=== PATIENT | male | born 1960 | race Caucasian/White ===

== ENCOUNTER 2023-03-23 19:32 | Emergency (ER) | payer OTHER, SELFPAY ==
--- NOTE | 2023-03-23 19:39 | ED_ITS ---
HPI - General Adult General Chief complaint: General Medical Stated complaint: heavy nose bleeding for 45 minutes Time Seen by Provider: 03/23/23 21:36 Source: patient Mode of arrival: ambulatory Limitations: no limitations History of Present Illness HPI narrative: Patient comes in the emergency room complaining of a nosebleed that lasted 45 minutes. Patient states that he had this happen before when his blood pressure was high. At this time, patient states that he feels that the nosebleed is slowing down. Patient denies headache. Approximately 4 hours ago, patient took his losartan. Related Data Previous Rx's Medication Instructions Recorded amlodipine 10 mg tablet 10 mg PO DAILY #30 tabs 03/23/23 Allergies Allergy/AdvReac Type Severity Reaction Status Date / Time No Known Allergies Allergy Verified 03/23/23 19:48 Review of Systems Review of Systems: Constitutional : No Weight loss, No Fever, No Chills, No Night Sweats, No Fatigue, No Malaise ENT/Mouth : Complaining of epistaxis, No Hearing loss, No Ear Pain, No Nasal Congestion, No Sinus Pain, No Hoarseness, No sore throat, No Rhinorrhea, No Swallowing Difficulty Eyes: No Eye Pain, No Swelling, No Redness, No Foreign Body, No Discharge, No Vision Changes Cardiovascular : No Chest Pain, No SOB, No Dyspnea on Exertion, No Orthopnea, No Edema, No Palpitations Respiratory : No Cough, No Sputum, No Wheezing, No Smoke Exposure, No Dyspnea Gastrointestinal : No Nausea, No Vomiting, No Diarrhea, No Constipation, No abdominal Pain, No Hematochezia, No Melena Genitourinary : no irregular bleeding, No Dysuria, No Urinary Frequency, No Hematuria, No Urinary Incontinence, No Urgency, No Flank Pain, No Urinary Flow Changes, No Hesitancy Musculoskeletal : No joint pain, No Myalgias, No Joint Swelling Skin : No Skin Lesions, No rash Neuro : No Weakness, No Numbness, No Paresthesias, No Loss of Consciousness, No Dizziness, No Headache Psych : No Anxiety/Panic, No Depression, No SI/HI/AH/VH, No Social Issues, Heme/Lymph: No Bruising, No Bleeding,No Lymphadenopathy Endocrine : No Polyuria, No Polydipsia, No Temperature Intolerance PMFSH Social History Social History Advance Directives: No Advance Directives Information Provided: No Physical Exam ED Vital Signs: Vital Signs - 24 hr 03/23/23 19:41 03/23/23 22:47 03/23/23 22:56 Temperature 98.2 F 98.5 F Pulse Rate 87 60 62 Respiratory Rate 20 18 18 Blood Pressure 175/87 H 214/99 H 195/113 H Pulse Oximetry 98 98 97 Oxygen Delivery Method Room Air Room Air Room Air BMI result Body Mass Index 27.2 Const Other: Appearance: Alert. Oriented X3. No acute distress. Eyes: Pupils equal, round and reactive to light. ENT: Pharynx normal. There is bilateral epistaxis mostly on the left nostril Neck: Normal inspection. Neck supple. No lymph nodes noted. No crepitus CVS: Normal heart rate and rhythm. Pulses normal. Normal S1 and S2 Respiratory: No respiratory distress. Breath sounds normal. No Wheezing. No rales Abdomen: Soft and nontender. No rigidity. No distention. Skin: Skin warm and dry. Normal skin color. Normal skin turgor. Extremities: No lower extremity edema. No Lacerations. No Rash Neuro: Oriented X 3. No motor deficit. No sensory deficit. Moving all extremities. No slurred speech. CN 2 through 12 grossly intact Psych: calm, cooperative, normal affect Course Course Course Narrative: This is an RME: Additional HPI, ROS, PE not included below will be deferred to primary provider. 63 year old male presents w/ nose bleed X [address] bleeding controlled. Not on thinners Plan- waiting room appropriate Medications Administered Discontinued Medications Generic Name Dose Route Start Last Admin Trade Name Freq PRN Reason Stop Dose Admin Amlodipine Besylate 5 mg 03/23/23 22:44 03/23/23 22:54 Amlodipine Besylate 5 Mg Tablet PO 03/23/23 22:45 5 mg ONCE ONE Administration Protocol Oxymetazoline HCl 2 spray 03/23/23 21:41 03/23/23 21:44 Oxymetazoline Hcl 0.05 % Nasal 15 Ml [place] NOSTRIL-B 03/23/23 21:42 2 spray ONCE ONE Administration Medical Decision Making Medical Decision Making [facility] Narrative: -patient has scant bleeding, patient's nose was sprayed bilaterally with Afrin -my interpretation of labs, hemoglobin 13.1, no previous baselines. Coagulation times within normal limits. -patient's nose was sprayed with Afrin, the bleeding stoped -it was noted that the patient's blood pressure is above 200, patient was given 1 dose of amlodipine 5 mg, the blood pressure did not improve significantly, now 195/113. Patient states that he is asymptomatic, no nosebleed, patient would like to leave against medical advice. Patient aware that leaving against medical advise with this high blood pressure put him at risk of stroke, severe cardiac pathology, permanent neurological damage and Differential Diagnosis Differential Diagnoses: The differential diagnosis associated with the presentation includes (Epistaxis due to high blood pressure, traumatic, environmental) Admission/Observation Consideration of admission/observation: Escalation of care including admission/observation considered (Patient's blood pressure is not well controlled, admission has been considered) Lab Data MDM Lab Attestation statement: I reviewed the patient's lab results. 03/23/23 19:56 03/23/23 19:56 Labs: Lab Results 03/23/23 03/23/23 03/23/23 Range/Units 19:56 19:56 19:56 WBC 6.2 (4.8-10.8) X10*3/uL RBC 4.18 L (4.60-5.80) X10*6/uL Hgb 13.1 L (14.0-18.0) g/dl Hct 39.0 L (42.0-52.0) % MCV 93.3 (80.0-98.0) fL MCH 31.3 (27.0-33.0) pg MCHC 33.6 (31.0-36.0) g/dl RDW 12.1 (11.0-16.0) % Plt Count 201 (160-400) X10*3/uL MPV 10.1 (9.4-12.4) fL Immature Gran % (Auto) 0.3 (0.0-0.4) % Neut % (Auto) 56.0 (45-73) % Lymph % (Auto) 26.8 (20-40) % Brewster % (Auto) 10.4 (2-11) % Eos % (Auto) 5.5 H (0-4) % Baso % (Auto) 1.0 (0-2) % Lymph # (Auto) 1.7 (1.2-4.9) X10*3/uL Brewster # (Auto) 0.7 (0.1-1.2) X10*3/uL Eos # (Auto) 0.3 (0.0-0.4) X10*3/uL Baso # (Auto) 0.1 (0.0-0.2) X10*3/uL Abs Immat Gran (auto) 0.02 (0.00-0.03) X10*3/uL Absolute Neuts (auto) 3.5 (2.0-8.3) x10*3/uL Absolute Nucleated RBC 0.000 (0.0-0.012) X10*3/uL Nucleated RBC % (auto) 0.0 (0.0-0.2) /100WBC PT 12.0 (11.1-13.3) SEC INR 1.0 (0.9-1.1) Sodium 143 (135-145) mmol/L Potassium 4.8 (3.3-5.1) mmol/L Chloride 112 H (96-108) mmol/L Carbon Dioxide 21 L (22-29) mmol/L Anion Gap 15 (12-20) BUN 20 H (9-16) mg/dL Creatinine 0.90 (0.5-1.4) mg/dL Estim Creat Clear Calc 77.5 Estimated GFR > 60 Random Glucose 123 H (60-115) mg/dL Calcium 9.9 (8.4-10.2) mg/dL Total Bilirubin 0.3 (0.0-1.0) mg/dL AST 20 (5-37) U/L ALT 19 (0-40) U/L Alkaline Phosphatase 97 (39-117) U/L Total Protein 7.2 (6.5-8.0) g/dL Albumin 4.4 (3.5-5.0) g/dL Critical Care Time Critical Care Time Critical Care Time: Yes Total Critical Care Time: 60 Attestation: Please follow-up with your primary care physician tomorrow. If you have any worsening or new symptoms, please return to the emergency room or call 911 Discharge Plan Discharge Clinical Impression: Epistaxis, Hypertensive urgency Patient Disposition: Left Against Medical Advice Instructions: Hypertension (ED) Additional Instructions: You are leaving against medical advice. Please follow-up with your primary care physician tomorrow. If you have any worsening or new symptoms, please return to the emergency room or call 911 Prescriptions: New amlodipine 10 mg tablet 10 mg PO DAILY Qty: 30 0RF Stand Alone Forms: Against Medical Advice
[2023-03-23 19:41] VITALS: BP 175/87; PULSE 87; RESP 20; TEMP 36.8; O2SAT 98; BMI 27.2
[2023-03-23 20:01] LABS: Basophils Absolute Auto 0.1 X10*3/uL (0.0-0.2); Eosinophils Absolute Auto 0.3 X10*3/uL (0.0-0.4); Eosinophils Percent Auto 5.5 % (0-4); Hemoglobin 13.1 g/dl (14.0-18.0); Imm Gran Abs Auto 0.02 X10*3/uL (0.00-0.03); Imm Gran Pct Auto 0.3 % (0.0-0.4); Lymphocytes Absolute Auto 1.7 X10*3/uL (1.2-4.9); Lymphocytes Percent Auto 26.8 % (20-40); MANUAL DIFF FLAG NO; Mean Corpuscular HGB Conc 33.6 g/dl (31.0-36.0); Mean Corpuscular Hemoglobin 31.3 pg (27.0-33.0); Mean Corpuscular Volume 93.3 fL (80.0-98.0); Mean Platelet Volume 10.1 fL (9.4-12.4); Monocytes Absolute Auto 0.7 X10*3/uL (0.1-1.2); Monocytes Percent Auto 10.4 % (2-11); Neutrophils Absolute Auto 3.5 x10*3/uL (2.0-8.3); Platelet Count 201 X10*3/uL (160-400); Red Blood Count 4.18 X10*6/uL (4.60-5.80); Red Cell Distribution Width 12.1 % (11.0-16.0); White Blood Count 6.2 X10*3/uL (4.8-10.8)
[2023-03-23 20:17] LABS: Alanine Aminotransferase 19 U/L (0-40); Albumin Level 4.4 g/dL (3.5-5.0); Alkaline Phosphatase 97 U/L (39-117); Anion Gap 15 (12-20); Aspartate Amino Transferase 20 U/L (5-37); Bilirubin Total 0.3 mg/dL (0.0-1.0); Blood Urea Nitrogen 20 mg/dL (9-16); Calcium 9.9 mg/dL (8.4-10.2); Carbon Dioxide 21 mmol/L (22-29); Chloride 112 mmol/L (96-108); Creatinine Clr Calc Pharmacy 77.5; Estimated Glomerular Filt Rate > 60; Glucose Random 123 mg/dL (60-115); Potassium 4.8 mmol/L (3.3-5.1); Sodium 143 mmol/L (135-145); Total Protein 7.2 g/dL (6.5-8.0)
[2023-03-23] MEDS: Oxymetazoline HCl 0.05 % Nasal 15 ML SPRAY 2 SPRAY NOSTRIL-B (21:44)
[2023-03-23 22:47] VITALS: BP 214/99; PULSE 60; RESP 18; TEMP 36.9; O2SAT 98
[2023-03-23] MEDS: amLODIPine Besylate 5 MG TABLET PO (22:54)
[2023-03-23 22:56] VITALS: BP 195/113; PULSE 62; RESP 18; O2SAT 97
--- NOTE | 2023-03-23 23:47 | PC.NURSE ---
Provider into discuss plan of care with pt, blood pressure 197/97. pt wanting to leaving against medical advice.
--- NOTE | 2023-03-23 23:54 | PC.NURSE ---
Reviewed Leaving with medial advice paperwork with pt. no sob or chest pain, No sign of distress.
[2023-03-23 23:55] VITALS: BP 197/97
== END 2023-03-23 23:58 | disposition left against medical advice (07) ==
PROVIDERS: Physician Assistant; Emergency Provider Emergency Medicine; PCP Internal Medicine
DX: R04.0 Epistaxis (principal); I16.0 Hypertensive urgency
CPT/HCPCS: 36415; 80053; 85025; 85610; 99282; 99283; 99284

== ENCOUNTER 2024-06-27 13:41 | Outpatient (AMB) | payer OTHER, SELFPAY ==
--- NOTE | 2024-06-27 13:55 | HO.SPINEOV ---
Intake Visit Reasons: LBP Intake Note: Mr. Ramsey is here today c/o low back pain. [employer] Required: No Allergies No Known Allergies Allergy (Verified 06/27/24 13:57) Assessment & Plan Assessment & Plan (1) Chronic SI joint pain: Code(s): M53.3 - Sacrococcygeal disorders, not elsewhere classified; G89.29 - Other chronic pain Category: Medical Plan Dear Dr Oakley, Thank you for referring Mr Ramsey to our office today. He is a very nice 64-year-old gentleman who presents to the office today for evaluation of left SI joint pain. He has been dealing with this now for about 6 months or so. It started spontaneously with no specific provocative event that he can recall. The pain is located over the left SI joint. It is aggravated with persistent or prolonged standing, walking, bending or even sleeping at night on the left side can be irritating. He has no pain shooting down the legs. It does not report any specific centralized back pain. 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 It will bother him throughout the day. He uses Advil, lnby-efy-rdelqgf medications like Tylenol etc.. He did undergo an SI joint injection at [facility] a number of months ago and this gave him no relief. He then tried either facet block or median branch block and this also gave him no relief. Given the localization of his symptoms over the SI joint, who is referred to us for an evaluation. He is due for an upcoming thoracic spinal decompression for myelopathy. PMH: He reports being otherwise healthy, he has history of hypertension, cholesterol, lumbar diskectomy, hernia repair. He has a slightly elevated PSA in his going for an MRI in his prostate soon. Denies any history of heart attack, stroke, liver disorders, gastrointestinal surgery, kidney issues, diabetes, bleeding disorders, cancer Social hx: He smokes a pack a day, does not use alcohol or recreational drugs Medications: Gemfibrozil, losartan, rosuvastatin, hydrochlorothiazide Allergies: None Physical exam: Awake alert oriented no acute distress, is able stand up out of a chair on his own, walks to the examining table independently. Strength in the lower extremities is normal, he does have hyperreflexia and clonus. Positive finger Prashanth test, positive JULIA testing yielding ipsilateral pain over the left SI joint, positive Gaenslen test and SI joint compression testing. Imaging review: He has lumbar MRI showing multilevel degenerative disc disease. He has Modic type 2 endplate changes at L2-3, L3-4 and L4-5. There may be some subtle sclerosis of the SI joints. Impression: 64-year-old male presents to the office today for evaluation of left-sided low back pain which localizes over the SI joint. He has positive physical exam findings and a good story for SI joint inflammation. Unfortunately SI joint injection did not help at all. His health insurance is [employer] and they will typically require 2 serial injections into the SI joint with demonstration of significant pain relief from the injections before approving Si joint fusion. Typically Dr. Padilla would also like to have at least 1 positive response with the injection as well just to confirm. Therefore, I will send him back to the [facility] Dr. Manzanares and see if they can repeat the injection and maybe will have some more success. If we do, we can then consider submitting for left SI joint fusion. I will see him back after the injection. I told him to do the injections after he completes his recovery from your surgery in the thoracic spine. Thank you for allowing us to care for your patient. The total time spent with this visit with this patient was 45 minutes reviewing history, physical exam, lumbar and thoracic imaging review, and implementation of treatment plan or further diagnostic testing Jonh Padilla MD,PhD [facility] Orders: Referrals Pain Management Referral G89.29 - Other chronic pain, M53.3 - Sacrococcygeal disorders, not elsewhere classified Coding Level of Care Code New Pt Level 4 (08503) Diagnoses Chronic SI joint pain M53.3; G89.29
== END 2024-06-27 14:19 | disposition home or self-care (01) ==
PROVIDERS: PCP Internal Medicine; Referring Provider Neurological Surgery; Visit Provider Physician Assistant
DX: M53.3 Sacrococcygeal disorders, not elsewhere classified (principal); G89.29 Other chronic pain
CPT/HCPCS: 99204

== ENCOUNTER → 2024-06-27 13:41 | Outpatient (BNVA) | payer OTHER, SELFPAY | PROVIDERS: PCP Internal Medicine; Referring Provider Neurological Surgery; Visit Provider Physician Assistant ==